=== PATIENT | male | born 1985 | race Caucasian/White ===

== ENCOUNTER 2017-04-26 11:20 | Emergency (ER) | payer SELFPAY ==
[~2017-04-26] VITALS: Wt 84.4 kg
[2017-04-26] MEDS ORDERED: DIPHTH/TET/ACEL PERTUSS (ADULT) 0.5 ML VIAL IM* ONE (13:00)
[2017-04-26] MEDS ORDERED: ACETAMINOPHEN 325 MG TAB PO ONE (13:00)
[2017-04-26] MEDS ORDERED: LIDOCAINE 1% (MDV) 20 ML INJ SC ONE (13:00)
[2017-04-26] MEDS ORDERED: IBUP-1542 PO (13:27)
--- NOTE | 2017-04-26 13:32 | ERD ---
ER Documentation Chief Complaint Chief Complaint left thumb lac with knife x 1 hour ago HPI 32-year-old male presents with a laceration of his left thumb sustained with a carpet knife. He denies restricted range of motion or weakness. Tetanus is not up-to-date. ROS All systems reviewed and are negative except as per history of present illness. Medications Home Meds Active Scripts Ibuprofen* (Motrin*) 600 Mg Tab, 600 MG PO Q6, #15 TAB Prov:DAFNE RUIZ MD 04/26/17 PMhx/Soc History of Surgery: No Anesthesia Reaction: No Hx Neurological Disorder: No Hx Respiratory Disorders: No Hx Cardiac Disorders: No Hx Psychiatric Problems: No Hx Miscellaneous Medical Probl: No Hx Alcohol Use: No Hx Substance Use: No Hx Tobacco Use: No Smoking Status: Never smoker Physical Exam Vitals Vital Signs Date Time Temp Pulse Resp B/P Pulse Ox O2 Delivery O2 Flow Rate FiO2 04/26/17 11:23 98.8 80 18 133/75 97 Physical Exam Const: [] Alert, [id number]. Head: Atraumatic Eyes: Normal Conjunctiva ENT: Normal External Ears, Nose and Mouth. Neck: Full range of motion..~ No meningismus. Resp: Clear to auscultation bilaterally Cardio: Regular rate and rhythm, no murmurs Abd: Soft, non tender, non distended. Normal bowel sounds Skin: No petechiae or rashes approximately 2.4 cm laceration on the lateral aspect left thumb. No restricted range of motion weakness or evidence of ischemia or tendon or neurologic deficits. Back: No midline or flank tenderness Ext: No cyanosis, or edema Neur: Awake and alert Psych: Normal Mood and Affect Results 24 hrs Current Medications Medications (Trade) Dose Ordered Sig/Junior Route PRN Reason Start Time Stop Time Status Last Admin Dose Admin Acetaminophen (Tylenol Tab) 650 mg ONCE ONCE PO 04/26/17 13:00 04/26/17 13:01 DC 04/26/17 13:24 Diphtheria/ Tetanus/Acell Pertussis (Adacel) 0.5 ml ONCE ONCE IM* 04/26/17 13:00 04/26/17 13:01 DC 04/26/17 13:24 Lidocaine (Xylocaine 1% (Mdv) 20 ml) 20 ml ONCE ONCE SC 04/26/17 13:00 04/26/17 13:01 DC Procedures/MDM Procedure note-left thumb was copiously irrigated with normal saline. 2 cc of lidocaine was used for local infiltration. 5 4-0 nylon sutures were used to approximate the wound. Patient tolerated procedure well and the wound was dressed. Departure Diagnosis: Primary Impression: Laceration Condition: Stable Patient Instructions: Laceration, Hand Additional Instructions: cheque 2 valenzuela para cheque para infeccion. cheque 10 valenzuela para saca los puntos / grapas. DAFNE RUIZ MD Apr 26, 2017 13:32
== END 2017-04-26 14:32 | disposition home or self-care (01) ==
LOC: FTE 11:20
DX: S61.012A Laceration without foreign body of left thumb without damage to nail, initial encounter (principal); W26.0XXA Contact with knife, initial encounter; Y92.9 Unspecified place or not applicable; Z23 Encounter for immunization
CPT/HCPCS: 90471